=== PATIENT | male | born 1990 | race Caucasian/White ===

== ENCOUNTER 2016-09-03 17:55 | Emergency (ER) | payer BC | END 2016-09-03 19:54 | disposition home or self-care (01) | LOC: ER 17:55 | DX: S91.111A Laceration without foreign body of right great toe without damage to nail, initial encounter (principal); W45.8XXA Other foreign body or object entering through skin, initial encounter; Y92.019 Unspecified place in single-family (private) house as the place of occurrence of the external cause | CPT/HCPCS: 12001; 90471; 90715; 99070; 99282-25 ==